=== PATIENT | female | born 1985 | race African-American/Black ===

== ENCOUNTER 2021-10-06 22:36 | Emergency (ER) | payer MEDICAID ==
[2021-10-06 23:05] LABS: Bilirubin Negative (Negative); Blood, Urine Trace (Negative); Clarity Clear (Clear); Glucose, Urine (Dipstick) Negative (Negative); Ketone, Urine Negative (Negative); Leukocyte Trace (Negative); Nitrite Negative (Negative); Protein, Urine (Dipstick) Trace mg/dL (Neg-Trace); Specific Gravity, Urine 1.025 (1.005-1.030); pH, Urine 6.5 (5.0-9.0)
[2021-10-06 23:08] LABS: Bacteria/HPF 1+ HPF (None Seen); RBC/HPF 0-3 HPF (0-3); WBC/HPF 0-3 HPF (0-3)
[2021-10-06 23:13] LABS: Pregnancy Test - Urine (BHCG) POSITIVE (Negative); Pregu Control Background? CLEAR/WHITE (CLR/WHITE); Pregu Control Bar Appear? YES (CONTROL BAR); Specific Gravity 1.025 (1.002-1.036)
[2021-10-06 23:49] LABS: #Basophils 0.1 thou/uL (0.0-0.2); #Eosinphils 0.2 thou/uL (0.0-0.7); #Lymphocytes 2.4 thou/uL (1.20-3.40); #Monocytes 0.6 thou/uL (0.11-0.59); #Neutrophils 5.1 thou/uL (1.40-6.50); %Eosinophils 2.8 % (0.0-10.0); %Lymphocytes 28.9 % (21.0-51.0); %Monocytes 6.9 % (0.0-10.0); %Neutrophils 60.4 % (42.0-75.0); Hemoglobin 12.9 g/dL (12.0-16.0); Mean Corpuscular HGB CONC 33.1 g/dL (32.0-36.0); Mean Corpuscular Hemoglobin 28.3 pg (27.0-31.0); Mean Corpuscular Volume 85.5 fL (78.0-98.0); Mean Platelet Volume 6.4 fL (7.4-10.4); Platelet Count 432 thou/uL (130-400); RBC Distribution Width 14.3 % (11.5-14.5); Red Blood Cell (RBC) Count 4.56 mill/uL (4.20-5.40); White Blood Cell (WBC) Count 8.4 thou/uL (4.8-10.8)
[2021-10-07 00:12] LABS: ALT (SGPT) 12 U/L (8-55); AST (SGOT) 11 U/L (5-34); Albumin 3.7 g/dL (3.5-5.0); Alkaline Phosphatase 56 U/L (40-110); Anion Gap 16 mmol/L (10-20); BUN (Urea Nitrogen) 8 mg/dL (7.0-18.7); Bilirubin, Total 0.2 mg/dL (0.2-1.2); Calc. Creatinine Clearance 0 mL/min (70-130); Calcium 9.4 mg/dL (7.8-10.44); Carbon Dioxide 20 mmol/L (22-29); Chloride 103 mmol/L (98-107); Globulin 4.2 g/dL (2.4-3.5); Glucose 233 mg/dL (70-105); Lipase 34 U/L (8-78); Potassium 3.6 mmol/L (3.5-5.1); Protein, Total 7.9 g/dL (6.0-8.3); Sodium 135 mmol/L (136-145)
== END 2021-10-07 00:30 | disposition home or self-care (01) ==
LOC: BURERS 22:36
DX: K21.00 Gastro-esophageal reflux disease with esophagitis, without bleeding (principal); I10 Essential (primary) hypertension; E11.9 Type 2 diabetes mellitus without complications; Z79.899 Other long term (current) drug therapy; Z79.84 Long term (current) use of oral hypoglycemic drugs
CPT/HCPCS: 36416; 80053; 81003; 81015; 81025; 83690; 84484; 85025; 93005

== ENCOUNTER 2024-12-15 06:11 | Emergency (ER) | payer OTHER ==
[2024-12-15] MEDS ORDERED: diphenhydrAMINE 25 MG CAP ONE (06:41)
[2024-12-15] MEDS ORDERED: Famotidine 20 MG TAB ONE (06:41)
== END 2024-12-15 07:01 | disposition home or self-care (01) ==
LOC: BURERS 06:11
DX: O99.711 Diseases of the skin and subcutaneous tissue complicating pregnancy, first trimester (principal); L50.0 Allergic urticaria; O24.111 Pre-existing type 2 diabetes mellitus, in pregnancy, first trimester; O10.911 Unspecified pre-existing hypertension complicating pregnancy, first trimester; Z3A.00 Weeks of gestation of pregnancy not specified; Z55.6 Problems related to health literacy
CPT/HCPCS: 99283

== ENCOUNTER 2024-12-15 22:33 | Emergency (ER) | payer OTHER ==
[2024-12-15] MEDS ORDERED: diphenhydrAMINE 25 MG CAP ONE (22:51)
[2024-12-15] MEDS ORDERED: Dexamethasone 10 MG/ML VIAL ONE (22:51)
[2024-12-15] MEDS ORDERED: predniSONE 20 MG TAB ONE (22:54)
[2024-12-15 23:20] LABS: Bilirubin Negative (Negative); Blood, Urine Negative (Negative); Clarity Clear (Clear); Glucose, Urine (Dipstick) Negative (Negative); Ketone, Urine Negative (Negative); Leukocyte Trace (Negative); Nitrite Negative (Negative); Protein, Urine (Dipstick) 30 mg/dL (Neg-Trace); Urobilinogen 0.2 mg/dL (Less than 2)
[2024-12-15 23:43] LABS: Pregnancy Test - Urine (BHCG) Negative (Negative); Pregu Control Background? CLEAR/WHITE (CLR/WHITE); Pregu Control Bar Appear? YES (CONTROL BAR)
[2024-12-15 23:48] LABS: Bacteria/HPF Rare-Few HPF (None Seen); CAUTI Indications for Culture Dysuria,urgency,freq; RBC/HPF 0-3 HPF (0-3); WBC/HPF None Seen HPF (0-3)
[2024-12-15 23:49] LABS: Urine Culture Reflex No No
== END 2024-12-15 23:58 | disposition home or self-care (01) ==
LOC: BURERS 22:33
DX: T78.40XA Allergy, unspecified, initial encounter (principal); E11.9 Type 2 diabetes mellitus without complications; I10 Essential (primary) hypertension
CPT/HCPCS: 81001; 81025; 99283; J1100; J7512